=== PATIENT | female | born 1975 | race Native Hawaiian/Other Pacific Islander ===

== ENCOUNTER 2016-10-30 11:29 | Emergency (ER) | payer OTHER ==
[~2016-10-30] VITALS: Ht 170.2 cm; Wt 57.2 kg
[~2016-10-30 11:29] MED LIST: ADIPEX PO; BUT/APAP/CA1 PO; MAXALT10 MG OR; MEDR150I3 IM; PERCODAN PO
[2016-10-30] MEDS ORDERED: PERCOCET1 TA1 PO (13:43)
[2016-10-30 13:45] VITALS: BP 116/77; TEMP 98
== END 2016-10-30 13:45 | disposition home or self-care (01) ==
LOC: ED 11:29
DX: G43.909 Migraine, unspecified, not intractable, without status migrainosus (principal); R52 Pain, unspecified; M79.7 Fibromyalgia
CPT/HCPCS: 96372; 99283; J1170; J2550

== ENCOUNTER 2016-12-26 12:40 | Outpatient (CLI) | payer OTHER ==
[~2016-12-26 12:40] MED LIST changes: +PERCOCET1 TA1 PO
== END 2016-12-26 13:01 | disposition short-term general hospital (02) ==
LOC: AMB 12:40
DX: G43.809 Other migraine, not intractable, without status migrainosus (principal); R11.2 Nausea with vomiting, unspecified
CPT/HCPCS: A0425; A0427

== ENCOUNTER 2016-12-26 13:01 | Emergency (ER) | payer OTHER ==
[~2016-12-26] VITALS: Ht 170.2 cm; Wt 55.3 kg
[2016-12-26 13:00] VITALS: TEMP 98.6
[2016-12-26 13:36] LABS: PLATELET COUNT 335 K/uL (152-353)
[2016-12-26 15:19] VITALS: BP 122/80
== END 2016-12-26 15:19 | disposition home or self-care (01) ==
LOC: ED 13:01
DX: G43.809 Other migraine, not intractable, without status migrainosus (principal)
CPT/HCPCS: 36415; 85027; 96374; 96376; 99284; J1170; J2405

== ENCOUNTER 2017-02-03 14:02 | Emergency (ER) | payer OTHER ==
[~2017-02-03] VITALS: Ht 170.2 cm; Wt 54.4 kg
[2017-02-03 14:10] VITALS: BP 122/99; TEMP 97.9
[2017-02-03] MEDS ORDERED: GABA400C2 PO (14:28)
[2017-02-03] MEDS ORDERED: NAPROSYN500 MG OR (14:29)
[2017-02-03] MEDS ORDERED: LEXAPRO20 MG OR (14:29)
[2017-02-03] MEDS ORDERED: CLON0.5T36 PO (14:29)
== END 2017-02-03 15:44 | disposition home or self-care (01) ==
LOC: ED 14:02
DX: M79.7 Fibromyalgia (principal); M54.5 Low back pain
CPT/HCPCS: 96372; 99283; J1885; J2550

== ENCOUNTER 2017-02-08 16:07 | Outpatient (CLI) | payer OTHER ==
[~2017-02-08 16:07] MED LIST changes: +CLON0.5T36 PO; +GABA400C2 PO; +LEXAPRO20 MG OR; +NAPROSYN500 MG OR
== END 2017-02-08 19:21 | disposition home or self-care (01) ==
LOC: RAD 16:07
DX: M25.551 Pain in right hip (principal); M25.552 Pain in left hip

== ENCOUNTER 2017-03-14 10:46 | Emergency (ER) | payer OTHER ==
[~2017-03-14] VITALS: Ht 170.2 cm; Wt 54.4 kg
[2017-03-14 10:56] VITALS: TEMP 98.3
[2017-03-14] MEDS ORDERED: MAXALT10 MG OR (11:08)
[2017-03-14] MEDS ORDERED: LEXAPRO20 MG OR (11:08)
[2017-03-14] MEDS ORDERED: TIZA4TAB5 PO (11:09)
[2017-03-14] MEDS ORDERED: PHENERGAN25 MG PR (11:10)
[2017-03-14] MEDS ORDERED: OXYCODONE30 MG PO (11:10)
[2017-03-14] MEDS ORDERED: XANAX XR1 MG OR (11:11)
[2017-03-14 13:39] VITALS: BP 152/86
== END 2017-03-14 13:40 | disposition home or self-care (01) ==
LOC: ED 10:46
DX: G43.909 Migraine, unspecified, not intractable, without status migrainosus (principal)
CPT/HCPCS: 96374; 96375; 99284; J1170; J1885; J2405; J3030

== ENCOUNTER 2017-05-02 09:30 | Emergency (ER) | payer OTHER ==
[~2017-05-02] VITALS: Ht 170.2 cm; Wt 54.4 kg
[~2017-05-02 09:30] MED LIST changes: +OXYCODONE30 MG PO; +PHENERGAN25 MG PR; +TIZA4TAB5 PO; +XANAX XR1 MG OR
[2017-05-02] MEDS ORDERED: PREMPRO1 TA1 OR (09:41)
[2017-05-02] MEDS ORDERED: CYCL10TA35 PO (09:42)
[2017-05-02] MEDS ORDERED: TRAZ100T OR (09:43)
[2017-05-02] MEDS ORDERED: HYDR200T3 PO (09:44)
[2017-05-02] MEDS ORDERED: NEURONTIN 100M100 MG OR (09:46)
[2017-05-02] MEDS ORDERED: EVISTA60 MG PO (09:47)
[2017-05-02 10:33] LABS: PLATELET COUNT 302 K/uL (152-353)
[2017-05-02 10:37] LABS: SODIUM 136 mmol/L (136-145)
[2017-05-02 11:00] VITALS: TEMP 98.1
[2017-05-02 16:00] VITALS: BP 118/72
== END 2017-05-02 16:10 | disposition home or self-care (01) ==
LOC: ED 09:30
PROVIDERS: Emergency Medicine
DX: R51 Headache (principal); M79.1 Myalgia; E87.6 Hypokalemia
CPT/HCPCS: 36415; 80053; 80307; 80320; 80329; 81000; 82550; 84484; 85027; 96365; 96366; 96372; 96375; 99284; G0479; J1200; J1630; J1885; J2550

== ENCOUNTER 2017-06-07 04:42 | Emergency (ER) | payer OTHER ==
[~2017-06-07] VITALS: Ht 165.1 cm; Wt 65.8 kg
[~2017-06-07 04:42] MED LIST changes: +CYCL10TA35 PO; +EVISTA60 MG PO; +HYDR200T3 PO; +NEURONTIN 100M100 MG OR; +PREMPRO1 TA1 OR; +TRAZ100T OR
[2017-06-07 05:09] LABS: PLATELET COUNT 289 K/uL (152-353)
[2017-06-07 05:20] LABS: POTASSIUM 2.9 mmol/L (3.6-5.2); SODIUM 135 mmol/L (136-145)
[2017-06-07 06:12] VITALS: BP 134/87; TEMP 98.1
== END 2017-06-07 06:20 | disposition home or self-care (01) ==
LOC: ED 04:42
DX: F41.0 Panic disorder [episodic paroxysmal anxiety] (principal); F15.93 Other stimulant use, unspecified with withdrawal
CPT/HCPCS: 80053; 80307; 81000; 85027; 96374; 99284; G0479; J2060

== ENCOUNTER 2017-06-26 19:06 | Emergency (ER) | payer OTHER ==
[~2017-06-26] VITALS: Ht 170.2 cm; Wt 56.7 kg
[2017-06-26 20:46] VITALS: BP 132/74; TEMP 98.4
== END 2017-06-26 20:57 | disposition home or self-care (01) ==
LOC: ED 19:06
DX: G43.909 Migraine, unspecified, not intractable, without status migrainosus (principal); R11.2 Nausea with vomiting, unspecified; M79.7 Fibromyalgia
CPT/HCPCS: 96360; 96361; 96374; 96375; 99284; J1100; J1170; J1885; J2405

== ENCOUNTER 2017-09-04 13:44 | Observation (INO) | payer OTHER ==
[~2017-09-04] VITALS: Ht 170.2 cm; Wt 56.0 kg
[2017-09-04 13:45] VITALS: BP 177/91; TEMP 98.2
[2017-09-04 15:18] LABS: SODIUM 136 mmol/L (136-145)
[2017-09-04 15:32] LABS: PLATELET COUNT 296 K/uL (152-353)
[2017-09-04 21:08] LABS: PARTIAL THROMBOPLASTIN TIME 26.1 SECONDS (24.5-33.6)
[2017-09-05 05:56] VITALS: BP 124/88; TEMP 98.4; Ht 170.2 cm; Wt 56.0 kg
[2017-09-05 06:28] LABS: POTASSIUM 4.1 mmol/L (3.6-5.2); SODIUM 140 mmol/L (136-145)
[2017-09-05 06:43] LABS: PLATELET COUNT 321 K/uL (152-353)
[2017-09-05 08:00] VITALS: BP 133/68; TEMP 98.7
[2017-09-05] MEDS ORDERED: CLON0.5T36 PO (08:50)
[2017-09-05] MEDS ORDERED: NEURONTIN800 MG PO (08:51)
== END 2017-09-05 13:05 | disposition home or self-care (01) ==
LOC: ED 13:44 → MED/SURG 18:30
DX: R07.89 Other chest pain (principal); M79.7 Fibromyalgia; I10 Essential (primary) hypertension
CPT/HCPCS: 36415; 80053; 80307; 81000; 82550; 84484; 85027; 85610; 85651; 85730; 93005; 96374; 96375; 99220; 99284; G0378; G0479; J1170; J2060; J2405; J2780; J2930

== ENCOUNTER 2017-11-17 16:57 | Emergency (ER) | payer OTHER ==
[~2017-11-17] VITALS: Ht 170.2 cm; Wt 54.4 kg
[~2017-11-17 16:57] MED LIST changes: +NEURONTIN800 MG PO
[2017-11-17 17:10] VITALS: TEMP 97.3
[2017-11-17 17:32] LABS: PLATELET COUNT 285 K/uL (152-353)
[2017-11-17 17:38] LABS: POTASSIUM 2.9 mmol/L (3.6-5.2); SODIUM 137 mmol/L (136-145)
[2017-11-17 18:41] VITALS: BP 145/84
== END 2017-11-17 18:48 | disposition home or self-care (01) ==
LOC: ED 16:57
DX: G43.909 Migraine, unspecified, not intractable, without status migrainosus (principal); R20.0 Anesthesia of skin; R00.0 Tachycardia, unspecified; Z79.899 Other long term (current) drug therapy
CPT/HCPCS: 36415; 80053; 80307; 81000; 82550; 84484; 85027; 93005; 99283

== ENCOUNTER 2018-01-07 17:31 | Emergency (ER) | payer OTHER ==
[~2018-01-07] VITALS: Ht 170.2 cm; Wt 53.5 kg
[2018-01-07 19:22] LABS: PLATELET COUNT 268 K/uL (152-353)
[2018-01-07 19:46] LABS: POTASSIUM 3.2 mmol/L (3.6-5.2)
[2018-01-07 21:23] VITALS: BP 120/69; TEMP 98.6
== END 2018-01-07 21:26 | disposition home or self-care (01) ==
LOC: ED 17:31
DX: M79.7 Fibromyalgia (principal); G43.909 Migraine, unspecified, not intractable, without status migrainosus
CPT/HCPCS: 80053; 80307; 81000; 85027; 96361; 96365; 96372; 96374; 96375; 99284; J1170; J1885; J2405; J7120

== ENCOUNTER 2018-03-26 14:43 | Emergency (ER) | payer OTHER ==
[~2018-03-26] VITALS: Ht 170.2 cm; Wt 54.4 kg
[~2018-03-26 14:43] MED LIST changes: +ACET-655 PO
[2018-03-26 14:50] VITALS: TEMP 99
[2018-03-26 17:43] VITALS: BP 136/78
== END 2018-03-26 17:43 | disposition home or self-care (01) ==
LOC: ED 14:43
DX: G43.909 Migraine, unspecified, not intractable, without status migrainosus (principal)
CPT/HCPCS: 96372; 99283; J2175; J2405; J3030

== ENCOUNTER 2018-05-27 17:45 | Emergency (ER) | payer OTHER ==
[~2018-05-27] VITALS: Ht 170.2 cm; Wt 54.4 kg
[2018-05-27 19:07] LABS: PLATELET COUNT 305 K/uL (152-353)
[2018-05-27 19:20] LABS: POTASSIUM 3.5 mmol/L (3.6-5.2)
[2018-05-27 20:27] VITALS: BP 109/76; TEMP 99.9
== END 2018-05-27 20:27 | disposition home or self-care (01) ==
LOC: ED 17:45
DX: G43.809 Other migraine, not intractable, without status migrainosus (principal); M79.7 Fibromyalgia
CPT/HCPCS: 36415; 80053; 85027; 96360; 96365; 96375; 99284; J1200; J2175; J2405; J2550; J3475

== ENCOUNTER 2018-06-24 12:00 | Outpatient (CLI) | payer OTHER | END 2018-06-24 12:20 | disposition short-term general hospital (02) | LOC: AMB 12:00 | DX: G43.109 Migraine with aura, not intractable, without status migrainosus (principal) | CPT/HCPCS: A0425; A0427 ==

== ENCOUNTER 2018-06-24 12:20 | Emergency (ER) | payer OTHER ==
[~2018-06-24] VITALS: Ht 170.2 cm; Wt 52.2 kg
[2018-06-24 12:52] VITALS: TEMP 98.9
[2018-06-24 13:06] VITALS: BP 121/69
== END 2018-06-24 13:15 | disposition home or self-care (01) ==
LOC: ED 12:20
DX: M79.7 Fibromyalgia (principal); G43.809 Other migraine, not intractable, without status migrainosus
CPT/HCPCS: 96374; 99284; J2550

== ENCOUNTER 2018-06-30 08:42 | Outpatient (CLI) | payer OTHER | END 2018-06-30 09:03 | disposition short-term general hospital (02) | LOC: AMB 08:42 | DX: R51 Headache (principal); R11.2 Nausea with vomiting, unspecified | CPT/HCPCS: A0425; A0427 ==

== ENCOUNTER 2018-06-30 09:06 | Emergency (ER) | payer OTHER ==
[~2018-06-30] VITALS: Ht 170.2 cm; Wt 59.0 kg
[2018-06-30 11:40] VITALS: BP 128/72; TEMP 98
== END 2018-06-30 11:40 | disposition home or self-care (01) ==
LOC: ED 09:06
DX: G43.909 Migraine, unspecified, not intractable, without status migrainosus (principal); L50.8 Other urticaria; K59.09 Other constipation
CPT/HCPCS: 96372; 96374; 96375; 99284; J2270; J2405; J3030

== ENCOUNTER 2018-07-16 13:56 | Outpatient (CLI) | payer OTHER | END 2018-07-16 14:18 | disposition short-term general hospital (02) | LOC: AMB 13:56 | DX: J44.1 Chronic obstructive pulmonary disease with (acute) exacerbation (principal) | CPT/HCPCS: A0425; A0427 ==

== ENCOUNTER 2018-07-16 14:25 | Emergency (ER) | payer OTHER ==
[~2018-07-16] VITALS: Ht 170.2 cm; Wt 59.0 kg
[2018-07-16 14:25] VITALS: TEMP 99.7
[2018-07-16 15:03] LABS: PLATELET COUNT 303 K/uL (152-353)
[2018-07-16 15:15] LABS: POTASSIUM 3.3 mmol/L (3.6-5.2)
[2018-07-16 18:30] VITALS: BP 99/68
== END 2018-07-16 18:50 | disposition home or self-care (01) ==
LOC: ED 14:25
PROVIDERS: Family Medicine
DX: J43.9 Emphysema, unspecified (principal); G89.4 Chronic pain syndrome
CPT/HCPCS: 80053; 85027; 96374; 96375; 96376; 99284; J2175; J2550

== ENCOUNTER 2018-07-23 21:00 | Outpatient (CLI) | payer OTHER | END 2018-07-23 21:24 | disposition short-term general hospital (02) | LOC: AMB 21:00 | DX: R07.89 Other chest pain (principal); R06.09 Other forms of dyspnea; R20.0 Anesthesia of skin | CPT/HCPCS: A0425; A0429 ==

== ENCOUNTER 2018-07-23 21:32 | Emergency (ER) | payer OTHER ==
[~2018-07-23] VITALS: Ht 170.2 cm; Wt 52.2 kg
[2018-07-23 21:32] VITALS: BP 107/65; TEMP 97.8
[2018-07-23 23:22] LABS: PLATELET COUNT 353 K/uL (152-353)
== END 2018-07-24 00:59 | disposition home or self-care (01) ==
LOC: ED 21:32
PROVIDERS: Internal Medicine
DX: R07.89 Other chest pain (principal); R11.0 Nausea; M79.7 Fibromyalgia; G90.59 Complex regional pain syndrome I of other specified site
CPT/HCPCS: 80053; 82550; 85027; 93005; 96372; 99283; J2405

== ENCOUNTER 2019-03-01 21:44 | Emergency (ER) | payer OTHER ==
[~2019-03-01] VITALS: Ht 170.2 cm; Wt 52.6 kg
[2019-03-01 22:51] LABS: PLATELET COUNT 285 K/uL (152-353)
[2019-03-01 23:04] LABS: POTASSIUM 3.5 mmol/L (3.6-5.2); SODIUM 140 mmol/L (136-145)
[2019-03-01 23:40] VITALS: BP 124/42; TEMP 98.2
== END 2019-03-01 23:49 | disposition home or self-care (01) ==
LOC: ED 21:44
PROVIDERS: Family Medicine
DX: R07.89 Other chest pain (principal); R06.02 Shortness of breath; F41.0 Panic disorder [episodic paroxysmal anxiety]; Z72.0 Tobacco use
CPT/HCPCS: 36415; 80053; 82550; 82553; 84484; 85027; 85379; 93005; 99283